=== PATIENT | male | born 1945 | race Caucasian/White ===

== ENCOUNTER 2020-04-26 14:34 | Inpatient (IN) | payer MEDICARE, BC ==
[~2020-04-26] VITALS: Ht 180.3 cm; Wt 102.1 kg
[2020-04-26] MEDS ORDERED: IV NORMAL SALINE 1000 ML BAG IV ONE (14:45)
[2020-04-26] MEDS ORDERED: ONDANSETRON 4 MG/2 ML VIAL ONE (14:55)
[2020-04-26] MEDS ORDERED: ONDANSETRON 4 MG/2 ML VIAL IV ONE (15:00)
--- NOTE | 2020-04-26 15:00 | NUR ---
pt threw up and says feels better.
[2020-04-26] MEDS ORDERED: ATOR40TA PO (15:04)
[2020-04-26] MEDS ORDERED: TAMS-3 PO (15:04)
[2020-04-26] MEDS ORDERED: CALC0.253 PO (15:04)
[2020-04-26] MEDS ORDERED: METF-442 PO (15:04)
[2020-04-26] MEDS ORDERED: VITAMIN D3 PO (15:04)
[2020-04-26] MEDS ORDERED: APIX5TAB PO (15:04)
[2020-04-26] MEDS ORDERED: VITAMIN B12 PO (15:04)
[2020-04-26] MEDS ORDERED: METO100T14 PO (15:04)
[2020-04-26] MEDS ORDERED: LEVO75TA7 PO (15:04)
[2020-04-26 15:11] LABS: BASOPHILS # (AUTO) 0.1 K/uL (0.0-8.0); BASOPHILS % (AUTO) 0.8 % (0.0-2.0); EOSINOPHILS # (AUTO) 0.2 K/uL (0.0-0.7); EOSINOPHILS % (AUTO) 3.2 % (0.0-7.0); HEMATOCRIT 34.2 % (36.7-47.1); HEMOGLOBIN 11.5 g/dL (12.5-16.3); LYMPHOCYTES # (AUTO) 2.1 K/uL (20.0-40.0); LYMPHOCYTES % (AUTO) 28.7 % (20.5-51.5); MEAN CORPUSCULAR HEMOGLOBIN 27.2 uug (23.8-33.4); MEAN CORPUSCULAR HGB CONC 34 g/dL (32.5-36.3); MEAN CORPUSCULAR VOLUME 81.1 fL (73.0-96.2); MONOCYTES # (AUTO) 1.1 K/uL (2.0-10.0); MONOCYTES % (AUTO) 14.7 % (0.0-11.0); NEUTROPHILS # (AUTO) 3.8 K/uL (1.8-8.9); NEUTROPHILS % (AUTO) 52.6 % (38.5-71.5); PLATELET COUNT (AUTO) 271 K/uL (152-348); RED BLOOD CELL COUNT(AUTO) 4.22 MIL/uL (4.06-5.63); WHITE BLOOD COUNT (AUTO) 7.2 K/uL (3.6-10.2)
[2020-04-26 15:19] LABS: CARBON DIOXIDE 23 mmol/L (21-32); CHLORIDE 106 mmol/L (98-107); GLUCOSE 125 mg/dL (74-106); POTASSIUM 4.4 mmol/L (3.5-5.1); UREA NITROGEN, BLOOD 33 mg/dL (7-18)
[2020-04-26 15:25] LABS: ALANINE AMINOTRANSFERASE 26 U/L (16-63); ALKALINE PHOSPHATASE 83 U/L (50-136); ASPARTATE AMINOTRANSFERASE 15 U/L (15-37); BILIRUBIN,DIRECT 0.2 mg/dL (0.0-0.2); BILIRUBIN,TOTAL 0.5 mg/dL (0.2-1.0); TOTAL PROTEIN, SERUM 6.8 g/dL (6.4-8.2)
--- NOTE | 2020-04-26 15:46 | NUR ---
at bedside, taking belongings home.
--- NOTE | 2020-04-26 16:55 | NUR ---
pt transfered to floor instable condition.
--- NOTE | 2020-04-26 17:00 | NUR ---
ADMITTED FROM HOME A 74 YO MALE WITH ADM DX OF ACUTE HYPOVOLEMIA SECONDARY TO DIARRHEA, ALERT AND ORIENTED X3 NO SS OF DISTRESS OR C/O PAIN. AFIB ON MONITOR. ROUTINE ADMISSION ASSESSMENT INITIATED. DR NATALIE DE PAZ NOTIFIED OF ADMISSION
[2020-04-26] MEDS ORDERED: Z GUARD REMEDY PASTE 57 GM TUBE TOP PRN (17:15)
[2020-04-26] MEDS ORDERED: ONDANSETRON 4 MG/2 ML VIAL IV PRN (17:15)
[2020-04-26] MEDS ORDERED: LOPERAMIDE HCL 2 MG CAPSULE PO PRN (17:15)
[2020-04-26] MEDS: APIXABAN 5 MG TABLET PO SCH (17:30)
[2020-04-26] MEDS: ATORVASTATIN 40 MG TABLET PO SCH (17:30)
[2020-04-26 17:45] VITALS: BP 104/83
[2020-04-26] MEDS: IV LACTATED RINGERS SOLUTION 1,000 ML IV PRN (18:19)
[2020-04-26 20:25] VITALS: BP 103/74
[2020-04-27] VITALS (9 sets, daily range): BP systolic 108–134; BP diastolic 60–84
[2020-04-27] MEDS: IV LACTATED RINGERS SOLUTION 1,000 ML IV PRN ×2 (03:57→22:15)
[2020-04-27 05:39] LABS: BASOPHILS % (AUTO) 0.6 % (0.0-2.0); EOSINOPHILS # (AUTO) 0.2 K/uL (0.0-0.7); EOSINOPHILS % (AUTO) 3.5 % (0.0-7.0); HEMATOCRIT 29.8 % (36.7-47.1); LYMPHOCYTES # (AUTO) 1.6 K/uL (20.0-40.0); LYMPHOCYTES % (AUTO) 29.1 % (20.5-51.5); MEAN CORPUSCULAR HEMOGLOBIN 27.4 uug (23.8-33.4); MEAN CORPUSCULAR HGB CONC 34 g/dL (32.5-36.3); MEAN CORPUSCULAR VOLUME 81.4 fL (73.0-96.2); MONOCYTES # (AUTO) 0.9 K/uL (2.0-10.0); MONOCYTES % (AUTO) 16.7 % (0.0-11.0); NEUTROPHILS # (AUTO) 2.7 K/uL (1.8-8.9); NEUTROPHILS % (AUTO) 50.1 % (38.5-71.5); PLATELET COUNT (AUTO) 228 K/uL (152-348); RED BLOOD CELL COUNT(AUTO) 3.67 MIL/uL (4.06-5.63); WHITE BLOOD COUNT (AUTO) 5.4 K/uL (3.6-10.2)
[2020-04-27 06:00] LABS: ALANINE AMINOTRANSFERASE 21 U/L (16-63); ALKALINE PHOSPHATASE 69 U/L (50-136); ASPARTATE AMINOTRANSFERASE 19 U/L (15-37); BILIRUBIN,TOTAL 0.5 mg/dL (0.2-1.0); CARBON DIOXIDE 26 mmol/L (21-32); CHLORIDE 107 mmol/L (98-107); CHOLESTEROL 88 mg/dL (<200); CREATININE 1.7 mg/dL (0.6-1.3); GLUCOSE 109 mg/dL (74-106); HDL CHOLESTEROL 45 mg/dL (40-60); MAGNESIUM 1.7 mg/dL (1.8-2.4); PHOSPHOROUS 3.4 mg/dL (2.5-4.9); POTASSIUM 4.2 mmol/L (3.5-5.1); TOTAL PROTEIN, SERUM 5.8 g/dL (6.4-8.2); TRIGLYCERIDES 56 MG/DL (30-150); UREA NITROGEN, BLOOD 30 mg/dL (7-18)
[2020-04-27 06:12] LABS: THYROID STIMULATING HORMONE 1.344 mIU/mL (0.358-3.740)
--- NOTE | 2020-04-27 08:00 | NUR ---
AWAKE ALERT AND ORIENTED X3 NO SS OF PAIN OR DISTRESS. REMAINS AFIB CONTROLLED TO UNCONTROLLED ON MONITOR. CONTINUE WITH TELE MONITORING
[2020-04-27] MEDS: TAMSULOSIN HCL 0.4 MG CAP.SR.24H PO SCH (08:18)
[2020-04-27] MEDS: LEVOTHYROXINE SODIUM 75 MCG TABLET PO SCH (08:18)
[2020-04-27] MEDS: ACETAMINOPHEN 325 MG TABLET PO PRN ×2 (08:19→21:57)
[2020-04-27] MEDS: APIXABAN 5 MG TABLET PO SCH ×2 (08:19→16:31)
[2020-04-27] MEDS: CHOLECALCIFEROL 1,000 UNIT TABLET PO SCH (08:20)
[2020-04-27] MEDS: CALCITRIOL 0.25 MCG CAPSULE PO SCH (08:21)
[2020-04-27 10:03] LABS: NEUTROPHILS % (MANUAL) 54 % (42-75)
[2020-04-27 10:04] LABS: BAND % (MANUAL) 1 % (0-10); LYMPHOCYTES % (MANUAL) 28 % (20-40); MONOCYTES % (MANUAL) 17 % (2-10)
--- NOTE | 2020-04-27 10:52 | NUR ---
PT was standing up, putting on gown and was noted with rapid A.Fib, asymptomatic. HR ranging from 140-[address] Minaya made aware with new orders. Beta rach resumed per physician's orders. 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 Will resume arrhythmic medication
[2020-04-27] MEDS ORDERED: METOPROLOL TARTRATE 50 MG TABLET PO ONE (11:15)
[2020-04-27] MEDS: MAGNESIUM SULFATE/D5W 100 ML IV SCH ×2 (11:38→12:34)
[2020-04-27 16:16] LABS: *BILIRUBIN,URIN NEGATIVE (NEGATIVE); *BLOOD, URINE NEGATIVE (NEGATIVE); *CLARITY,URINE CLEAR (CLEAR); *COLOR,URINE YELLOW (YELLOW); *KETONES,URINE NEGATIVE (NEGATIVE); *UROBILINOGEN,URINE 0.2 E.U./dl (NORMAL); LEUKOCYTE ESTERASE ,URINE NEGATIVE (NEGATIVE); NITRITE, URINE NEGATIVE (NEGATIVE); PH,URINE 5.5 (5.0-8.0); UGLUCOSE TRACE (NEGATIVE)
[2020-04-27 16:20] LABS: *CREATININE,URINE 43.3 mg/dL (30-125); *URINE TOTAL PROTEIN RANDOM 8.9 mg/dL (<150/24HR)
[2020-04-27] MEDS: ATORVASTATIN 40 MG TABLET PO SCH (18:18)
--- NOTE | 2020-04-27 18:44 | NUR ---
REMAINS AFIB CONTROLLED. PLAN DC IN AM HOME WITH
--- NOTE | 2020-04-27 19:30 | NUR ---
RECEIVED PT AWAKE, ALERT AND ORIENTEDX4. PT IN NO ACUTE DISTRESS. PT IV INTACT. SAFETY AND COMFORT PROVIDED. WILL CONTINUE TO MONITOR.
[2020-04-27] MEDS: METOPROLOL TARTRATE 50 MG TABLET PO SCH (21:57)
[2020-04-28 00:02] VITALS: BP 128/89
[2020-04-28 04:02] VITALS: BP 122/87
--- NOTE | 2020-04-28 06:05 | NUR ---
PT SLEPT COMFORTABLY. PT IN NO ACUTE DISTRESS. PRESCRIBED MEDICATION GIVEN AND PT TOLERATED IT WELL. IV INTACT. PT URINE OUTPUT GOOD. SAFETY AND COMFORT PROVIDED. ALL NEEDS ARE MET. WILL ENDORSE TO INCOMING NURSE FOR CONTINUITY OF CARE.
[2020-04-28 07:29] LABS: BASOPHILS # (AUTO) 0.1 K/uL (0.0-8.0); BASOPHILS % (AUTO) 1.3 % (0.0-2.0); EOSINOPHILS # (AUTO) 0.3 K/uL (0.0-0.7); EOSINOPHILS % (AUTO) 4.5 % (0.0-7.0); HEMATOCRIT 33.7 % (36.7-47.1); HEMOGLOBIN 11.4 g/dL (12.5-16.3); LYMPHOCYTES # (AUTO) 1.7 K/uL (20.0-40.0); LYMPHOCYTES % (AUTO) 26.2 % (20.5-51.5); MEAN CORPUSCULAR HEMOGLOBIN 27.2 uug (23.8-33.4); MEAN CORPUSCULAR HGB CONC 34 g/dL (32.5-36.3); MEAN CORPUSCULAR VOLUME 80.3 fL (73.0-96.2); MONOCYTES # (AUTO) 0.8 K/uL (2.0-10.0); MONOCYTES % (AUTO) 12.5 % (0.0-11.0); NEUTROPHILS # (AUTO) 3.7 K/uL (1.8-8.9); NEUTROPHILS % (AUTO) 55.5 % (38.5-71.5); PLATELET COUNT (AUTO) 276 K/uL (152-348); RED BLOOD CELL COUNT(AUTO) 4.19 MIL/uL (4.06-5.63); WHITE BLOOD COUNT (AUTO) 6.7 K/uL (3.6-10.2)
[2020-04-28 07:47] LABS: IRON, SERUM 45 ug/dL (50-175)
[2020-04-28 08:03] LABS: ALANINE AMINOTRANSFERASE 30 U/L (16-63); ALKALINE PHOSPHATASE 85 U/L (50-136); ASPARTATE AMINOTRANSFERASE 28 U/L (15-37); BILIRUBIN,TOTAL 0.5 mg/dL (0.2-1.0); CARBON DIOXIDE 29 mmol/L (21-32); CHLORIDE 105 mmol/L (98-107); CREATININE 1.7 mg/dL (0.6-1.3); FERRITIN 20 ng/mL (26-388); GLUCOSE 141 mg/dL (74-106); MAGNESIUM 2.1 mg/dL (1.8-2.4); PHOSPHOROUS 3.6 mg/dL (2.5-4.9); POTASSIUM 4.4 mmol/L (3.5-5.1); TOTAL PROTEIN, SERUM 6.8 g/dL (6.4-8.2); UREA NITROGEN, BLOOD 24 mg/dL (7-18)
[2020-04-28] MEDS: CHOLECALCIFEROL 1,000 UNIT TABLET PO SCH (08:26)
[2020-04-28] MEDS: TAMSULOSIN HCL 0.4 MG CAP.SR.24H PO SCH (08:26)
[2020-04-28] MEDS: CALCITRIOL 0.25 MCG CAPSULE PO SCH (08:26)
[2020-04-28] MEDS: LEVOTHYROXINE SODIUM 75 MCG TABLET PO SCH (08:26)
[2020-04-28] MEDS: APIXABAN 5 MG TABLET PO SCH (08:26)
--- NOTE | 2020-04-28 09:00 | NUR ---
RECEIVED PATIENT AWAKE, ALERT AND ORIENTED X 4. VSS. NO S/S OF DISTRESS NOTED AT THIS TIME. DENIES PAIN. PATIENT ABLE TO AMBULATE TO RESTROOM. CONTINENT OF B/B. STOOL SAMPLE SENT TO LAB THIS MORNING PER ORDER. IV ON LEFT AC 20G, FLUSHED AND PATENT. SAFETY PRECAUTIONS IN PLACE. WILL CONTINUE TO MONITOR.
[2020-04-28] MEDS: METOPROLOL TARTRATE 50 MG TABLET PO SCH (09:29)
[2020-04-28 11:59] VITALS: BP 105/76
--- NOTE | 2020-04-28 15:16 | NUR ---
PATIENT DISCHARGED HOME. VSS. NO S/S OF DISTRESS OR SOB. ID BAND AND IV REMOVED, NO S/S OF BLEEDING NOTED. PROVIDED PATIENT WITH EDUCATIONAL MATERIAL REGARDING PRIMARY DIAGNOSIS. PATIENT VERBALIZED UNDERSTANDING. BELONGINGS GIVEN BACK TO PATIENT AND BELONGINGS CHECKLIST SIGNED. PICKED UP BY IN A PRIVATE CAR.
== END 2020-04-28 15:10 | disposition home or self-care (01) | DRG 73 ==
LOC: ER 14:34 → TELE3 16:31
PROVIDERS: ADMIT Nurse Practitioner Acute Care; ATTEND Nurse Practitioner Acute Care
DX: G90.8 Other disorders of autonomic nervous system (principal); N17.0 Acute kidney failure with tubular necrosis; D68.69 Other thrombophilia; E86.1 Hypovolemia; I48.91 Unspecified atrial fibrillation; Z79.01 Long term (current) use of anticoagulants; D64.9 Anemia, unspecified; E11.22 Type 2 diabetes mellitus with diabetic chronic kidney disease; M81.0 Age-related osteoporosis without current pathological fracture; N40.0 Benign prostatic hyperplasia without lower urinary tract symptoms; I95.9 Hypotension, unspecified; I11.9 Hypertensive heart disease without heart failure; R19.7 Diarrhea, unspecified; E56.9 Vitamin deficiency, unspecified; Z79.84 Long term (current) use of oral hypoglycemic drugs
CPT/HCPCS: 36415; 70030-TC; 70450; 71045; 83550; 83735; 84100; 84156; 84300; 84443; 85025; 85730; 93005; A4663; G0378; J2405; J3475; J7030; J7120